=== PATIENT | female | born 1995 | race Two or more races ===

== ENCOUNTER 2019-03-20 10:25 | Emergency (ER) | payer MEDICAID ==
[~2019-03-20] VITALS: Ht 170.2 cm; Wt 140.0 kg
[2019-03-20 10:54] VITALS: BP 130/78
== END 2019-03-20 14:27 | disposition home or self-care (01) ==
LOC: ER 10:25
DX: J06.9 Acute upper respiratory infection, unspecified (principal); R04.0 Epistaxis; D64.9 Anemia, unspecified; J45.909 Unspecified asthma, uncomplicated
CPT/HCPCS: 99283

== ENCOUNTER 2022-06-08 17:43 | Emergency (ER) | payer OTHER ==
[~2022-06-08] VITALS: Ht 170.2 cm; Wt 120.0 kg
[2022-06-08 17:56] VITALS: BP 130/78
== END 2022-06-08 21:05 | disposition left against medical advice (07) ==
LOC: ER 17:43
DX: Z53.21 Procedure and treatment not carried out due to patient leaving prior to being seen by health care provider (principal)